=== PATIENT | female | born 1965 | race Caucasian/White ===

== ENCOUNTER → 2020-03-21 | Emergency (ER) | payer OTHER ==
[~2020-03-21] VITALS: Ht 162.6 cm; Wt 86.2 kg
[~2020-03-21] MED LIST: CATAFLAM50 MG; CATAFLAM50 MG PO; LYRICA100 MG; NEURONTIN300 MG PO; XANAFLEX PO; ZANAFLEX4 M1
== END | disposition home or self-care (01) ==
LOC: ER 04:25
DX: R51 Headache (principal); I10 Essential (primary) hypertension